=== PATIENT | male | born 1955 | race Caucasian/White ===

== ENCOUNTER 2024-02-23 11:54 | Day surgery (SDC) | payer MEDICARE, OTHER ==
[~2024-02-23] VITALS: Ht 170.2 cm; Wt 106.8 kg
[~2024-02-23 11:54] MED LIST: ADULT LOW DOSE81 MG PO; CYCLOBENZAPRINE10 MG PO; IBLOOD GLUCOSE TEST STRIP 1 EA TEST VI PRN; LACTATED RINGER'S 1,000 ML IV SCH; LIDOCAINE HCL 1% 5 ML SDV INJ ONE; METOPROLOL TART50 MG PO; MIDAZOLAM HCL 5 MG/5 ML VIAL IV PRN; MINOCYCLINE HC100 MG PO; NORVASC5 MG PO; OMEPRAZOLE20 MG PO; ROSUVASTATIN CA40 MG PO; TRAZODONE HCL50 MG PO; ZETIA10 MG PO; fentaNYL citrate 100 MCG/2 ML VIAL IV PRN
[2024-02-23 12:18] VITALS: BP 145/75
[2024-02-23] MEDS ORDERED: FISH OIL 1,0001 EAC5 PO (12:22)
[2024-02-23] MEDS ORDERED: MIDAZOLAM HCL 5 MG/5 ML VIAL ONE (12:46)
[2024-02-23] MEDS ORDERED: fentaNYL citrate 100 MCG/2 ML VIAL ONE (12:47)
--- NOTE | 2024-02-23 14:23 | NUR ---
02/23/24 1423 Jen Giles PT TO PACU AWAKE AND ALERT DENIES PAIN AND NAUSEA. PT PASSING GAS.
[2024-02-23 14:43] VITALS: BP 115/59
--- NOTE | 2024-02-25 10:27 | OR ---
[facility] [address], [place] [address] Signed DATE OF OPERATION: 02/23/2024 SURGEON: Vale Henry MD PREOPERATIVE DIAGNOSES: 1. Colon screening. 2. History of acute diverticulitis x1. POSTOPERATIVE DIAGNOSES: 1. Extensive diverticulosis sigmoid and left colon. 2. Small polyps x5. PROCEDURE: Total colonoscopy to cecum with cold morcellation polypectomy x5. ANESTHESIA: Intravenous sedation; fentanyl 100 mcg and Versed 5 mg. INDICATION: This 68-year-old white man is a patient of Dr. Spencer Campa. He is generally symptom-free having no bleeding, diarrhea or constipation. He has suffered diverticulitis from a clinical standpoint at least once. He last underwent colonoscopy 27 years ago; he says he did not receive sedation, I suspect he actually had a flexible sigmoidoscopy. He is admitted at this time to undergo screening colonoscopy. He understands the risk of bleeding, infection, and perforation. FINDINGS: The prep was good. Complete colonoscopy was undertaken the cecum. There was a small polyp of the cecum, right transverse colon, left colon, sigmoid and rectum. PROCEDURE IN DETAIL: The patient was brought to the endoscopy suite and placed in the lateral decubitus position, given intravenous sedation to the point of slurred speech and nystagmus. Digital rectal examination was normal. An Olympus video colonoscope was passed in the rectum and manipulated into the sigmoid noting diverticulosis. The scope was advanced beyond this ultimately to the cecum. The ileocecal valve and appendiceal orifice were normal. A small polyp was noted of the cecum, this was excised with cold morcellation technique. Withdrawal of scope demonstrated another small polyp of the right transverse colon, which was similarly Electronically Signed By: VALE HENRY MD 02/25/24 1027 PATIENT NAME: VALE PAGE OPERATIVE REPORT DATE OF : 59 REPORT #: [id number] PHYSICIAN: VALE HENRY MD PCP: ANTOINETTE CAMP NP REPORT IS CONFIDENTIAL AND NOT TO BE RELEASED WITHOUT AUTHORIZATION [facility] [address], [place] [address] Signed excised. Further withdrawal showed another polyp of the left colon also small and excised with cold morcellation technique. Single small polyp was noted of the sigmoid, which was excised and ultimately the rectum where two small polyps probably hyperplastic were also excised. Retroflexed view showed no other abnormality of concern. The scope was removed and the patient was taken to the recovery room in good condition. CONCLUDING DIAGNOSES: Polyps x5 and diverticulosis. PLAN: Recommend repeat colonoscopy in seven years, sooner if symptoms should develop. Would recommend high-fiber diet as well. He will return to the ongoing care of Dr. Spencer Campa. MD HÉCTOR Sow/MARQUITA /[id number] cc: Dr. Campa Copies: ~ Electronically Signed By: VALE HENRY MD 02/25/24 1027 PATIENT NAME: VALE PAGE OPERATIVE REPORT DATE OF : 59 REPORT #: [id number] PHYSICIAN: VALE HENRY MD PCP: ANTOINETTE CAMP NP REPORT IS CONFIDENTIAL AND NOT TO BE RELEASED WITHOUT AUTHORIZATION
--- NOTE | 2024-02-25 20:50 | PATH ---
[facility] [address] [facility] [place], [place] [address] Signed SPECIMEN(S): A CECUM COLON POLYP SPECIMEN(S): B ASCENDING COLON POLYP SPECIMEN(S): C TRANSVERSE COLON POLYP SPECIMEN(S): D RECTOSIGMOID POLYP SPECIMEN(S): E RECTAL POLYPS SPECIMEN SOURCE: A. CECUM COLON POLYP B. ASCENDING COLON POLYP C. TRANSVERSE COLON POLYP D. RECTOSIGMOID POLYP E. RECTAL POLYPS CLINICAL HISTORY: Screening, postop: Diverticulosis, polyps x 6 FINAL PATHOLOGIC DIAGNOSIS: A. Colon, cecal polyp, biopsy: - Tubular adenoma; base of polyp appears free of adenomatous change. - Negative for high-grade dysplasia and malignancy. B. Ascending colon polyp, biopsy: - Portions of tubular adenoma (3 of 8 pieces); negative for high-grade dysplasia and malignancy. - Unremarkable colonic mucosa (5 of 8 pieces). C. Transverse colon polyp, biopsy: - Tubular adenoma (1 of 4 pieces). - Unremarkable colonic mucosa (3 of 4 pieces). - Negative for dysplasia and malignancy. D. Rectosigmoid polyp, biopsy: - Portions of hyperplastic polyp (2 of 2 pieces). - Negative for dysplasia and malignancy. E. Rectal polyps, biopsy: - Portions of hyperplastic polyp (2 of 2 pieces). - Negative for dysplasia and malignancy. [facility] MICROSCOPIC EXAMINATION: Histologic sections of all submitted blocks are examined by light microscopy. These findings, together with the gross examination, support the pathologic diagnosis. PATIENT NAME: MEMEVALE LES PATHOLOGY DATE OF : 59 REPORT #: [id number] PHYSICIAN: TRINIDAD DE LOS SANTOS PCP: ANTOINETTE CAMP NP REPORT IS CONFIDENTIAL AND NOT TO BE RELEASED WITHOUT AUTHORIZATION [facility] [address], [place] [address] Signed GROSS DESCRIPTION: A. The specimen, labeled and designated "Donavon Valentine, cecum colon polyp," is received in formalin and consists of one nance soft tissue fragment, 0.3 cm. Entirely submitted in (A1). B. The specimen, labeled and designated "Sethr, J, ascending colon polyp," is received in formalin and consists of eight nance soft tissue fragments, ranging from 0.1-0.3 cm. Entirely submitted in (B1). C. The specimen, labeled and designated "Sethr, J, transverse colon polyp," is received in formalin and consists of four nance soft tissue fragments, ranging from 0.2-0.4 cm. Entirely submitted in (C1). D. The specimen, labeled and designated "Meme J, rectosigmoid polyp," is received in formalin and consists of one nance soft tissue fragment, 0.3 cm. Entirely submitted in (D1). E. The specimen, labeled and designated "Sethr, J, rectal polyps," is received in formalin and consists of two nance soft tissue fragments, ranging from 0.3-0.4 cm. Entirely submitted in (E1). AB (under the direct supervision of a pathologist) The Gross Description was prepared using a voice recognition system. The report was reviewed for accuracy; however, sound-alike word errors, addition and/or deletions may occur. If there are any questions about this report, please contact Client Services. ADDITIONAL NOTES: Immunohistochemical and/or in situ hybridization studies if performed in this case included appropriate positive controls that reacted as expected. This test was developed and its performance characteristics determined by [email or web address]. It has not been cleared or approved by the U.S. Food and Drug Administration. The FDA has determined that such clearance or approval is not necessary. This test is used for clinical purposes. It should not be regarded as investigational or for research. [email or web address] is certified under the Clinical Laboratory Improvement Amendments of 1988 (CLIA) as qualified to perform high complexity clinical laboratory testing. PERFORMING LABORATORY: Technical component was performed by [facility], [address] [place] [id number] (CLIA# [id number]). Professional interpretation was performed by [facility] PATIENT NAME: VALE VALENTINE PATHOLOGY DATE OF : 59 REPORT #: [id number] PHYSICIAN: DANIELLEConferenceEdge FILIBERTO PCP: ANTOINETTE CAMP NP REPORT IS CONFIDENTIAL AND NOT TO BE RELEASED WITHOUT AUTHORIZATION [address] [address] Signed [facility], [address] [place] [address] [place] [address] (CLIA#: [id number]). Diagnostician: Vesta Parekh MD Pathologist Electronically Signed 02/25/2024 Copies: ~ PATIENT NAME: VALE VALENTINE PATHOLOGY DATE OF : 59 REPORT #: [id number] PHYSICIAN: TRINIDAD PATHOLOGY PCP: ANTOINETTE CAMP NP REPORT IS CONFIDENTIAL AND NOT TO BE RELEASED WITHOUT AUTHORIZATION
== END 2024-02-23 14:55 | disposition home or self-care (01) ==
LOC: DS 11:54
PROVIDERS: ATTEND Surgery
PROC: 0DBL8ZZ Excision of Transverse Colon, Via Natural or Artificial Opening Endoscopic (ICD-10-PCS; 2024-02-23)
PROC: 0DBN8ZZ Excision of Sigmoid Colon, Via Natural or Artificial Opening Endoscopic (ICD-10-PCS; 2024-02-23)
PROC: 0DBP8ZZ Excision of Rectum, Via Natural or Artificial Opening Endoscopic (ICD-10-PCS; 2024-02-23)
PROC: 0DBG8ZZ Excision of Left Large Intestine, Via Natural or Artificial Opening Endoscopic (ICD-10-PCS; 2024-02-23)
PROC: 0DBH8ZZ Excision of Cecum, Via Natural or Artificial Opening Endoscopic (ICD-10-PCS; principal; 2024-02-23 13:00)
DX: Z12.11 Encounter for screening for malignant neoplasm of colon (principal); D12.0 Benign neoplasm of cecum; D12.2 Benign neoplasm of ascending colon; D12.3 Benign neoplasm of transverse colon; K62.1 Rectal polyp; K57.30 Diverticulosis of large intestine without perforation or abscess without bleeding; I10 Essential (primary) hypertension; E66.01 Morbid (severe) obesity due to excess calories; Z95.5 Presence of coronary angioplasty implant and graft; Z87.39 Personal history of other diseases of the musculoskeletal system and connective tissue; Z68.36 Body mass index [BMI] 36.0-36.9, adult; Z85.46 Personal history of malignant neoplasm of prostate; Z87.19 Personal history of other diseases of the digestive system
CPT/HCPCS: 88305; 99153; G0500; J2250; J3010; J7121

== ENCOUNTER 2025-01-19 09:14 | Emergency (ER) | payer MEDICARE, OTHER ==
[~2025-01-19] VITALS: Ht 170.2 cm; Wt 116.3 kg
[~2025-01-19 09:14] MED LIST changes: +FISH OIL 1,0001 EAC5 PO; -IBLOOD GLUCOSE TEST STRIP 1 EA TEST VI PRN; -LACTATED RINGER'S 1,000 ML IV SCH; -LIDOCAINE HCL 1% 5 ML SDV INJ ONE; -MIDAZOLAM HCL 5 MG/5 ML VIAL IV PRN; -fentaNYL citrate 100 MCG/2 ML VIAL IV PRN
[2025-01-19] MEDS ORDERED: KETOROLAC TROMETHAMINE 15 MG/ML VIAL IV ONE (09:45)
[2025-01-19 09:58] LABS: BASOPHILS 0.6 % (0.2-1.2); EOSINOPHILS 1.6 % (0.8-7.0); LYMPHOCYTES 8.7 % (21.8-53.1); MCH 29.8 PG (25.7-32.2); MCHC 32.9 g/dL (32.3-36.5); MCV 90.6 fL (79.0-92.2); MONOCYTES 7.6 % (5.3-12.2); NEUTROPHILS 81.1 % (34.0-67.9); RBC 5.10 M/uL (4.63-6.08)
[2025-01-19 10:12] LABS: BLOOD/HGB, URINE NEGATIVE (Negative); KETONE, URINE NEGATIVE (Negative); LEUK ESTERASE, URINE NEGATIVE (negative); NITRITE, URINE NEGATIVE (negative)
[2025-01-19 10:14] LABS: ALT (SGPT) 31.0 U/L (14-59); AST (SGOT) 14.0 U/L (15-37); GLOMERULAR FILTRATION RATE,EST 98.0 mL/min (>60); PROTEIN, TOTAL 6.6 g/dL (6.4-8.2); UREA NITROGEN 13.0 mg/dL (7-18)
[2025-01-19 10:21] LABS: BACTERIA, URINE NONE SEEN /hpf (negative); CASTS, URINE NONE SEEN \\lpf; CRYSTALS, URINE NONE SEEN (0-1+); EPITHELIAL CELLS, URINE SQUAMOUS 1+ /lpf (0-1+)
[2025-01-19 10:22] LABS: REFLEX CULTURE, URINE No (No)
[2025-01-19] MEDS ORDERED: AMOXICILLIN/CLAVULANATE K 875 MG TAB PO ONE (11:15)
[2025-01-19] MEDS ORDERED: AMOX TR-K CLV1 EAC1 PO (11:18)
[2025-01-19] MEDS ORDERED: ONDANSETRON ODT4 MG PO (11:18)
[2025-01-19] MEDS ORDERED: HYDROCODON-ACE1 EA10 PO (11:18)
[2025-01-19 11:32] VITALS: BP 130/83
== END 2025-01-19 11:33 | disposition home or self-care (01) ==
LOC: ED 09:14
PROVIDERS: Emergency Medicine
DX: K57.92 Diverticulitis of intestine, part unspecified, without perforation or abscess without bleeding (principal); Z79.82 Long term (current) use of aspirin; Z79.899 Other long term (current) drug therapy; Z88.1 Allergy status to other antibiotic agents; Z88.2 Allergy status to sulfonamides; Z88.5 Allergy status to narcotic agent; Z88.8 Allergy status to other drugs, medicaments and biological substances
CPT/HCPCS: 36415; 74176; 80053; 81001; 85025; 96374; 96375; 99284-25; J1885; J2405